=== PATIENT | male | born 1965 | race African-American/Black ===

== ENCOUNTER 2021-01-15 14:18 | Inpatient (IN) | payer OTHER ==
[2021-01-15 16:14] VITALS: BMI 25.7
[2021-01-15] MEDS ORDERED: chlordiazePOXIDE HCL 25 MG CAPSULE PO PRN (18:09)
[2021-01-15] MEDS ORDERED: METHOCARBAMOL 500 MG TABLET PO PRN (18:12)
[2021-01-15] MEDS ORDERED: MAGNESIUM HYDROX 2400MG/30ML ORAL SUSPENSION 30 ML CUP PO PRN (18:12)
[2021-01-15] MEDS ORDERED: BISMUTH SUBSALICYLATE 524 MG/30 ML UD PO PRN (18:12)
[2021-01-15] MEDS ORDERED: IBUPROFEN 400 MG TABLET (FP) PO PRN (18:12)
[2021-01-15] MEDS ORDERED: MENTHOL/PHENOL 1 EACH UD MM PRN (18:12)
[2021-01-15] MEDS ORDERED: MAG HYDROX/AL HYDROX/SIMETH 30 ML UNIT-DOSE CUP PO PRN (18:12)
[2021-01-15] MEDS ORDERED: ACETAMINOPHEN 325 MG TABLET (FP) PO PRN ×2 (18:12)
[2021-01-15] MEDS ORDERED: ONDANSETRON *ODT* 4 MG TABLET SL PRN (18:12)
[2021-01-15] MEDS ORDERED: MAGNESIUM CITRATE 300 ML BOTTLE PO PRN (18:12)
[2021-01-15] MEDS: MELATONIN 5 MG TABLETS PO SCH (21:30)
[2021-01-15] MEDS: hydrOXYzine PAMOATE 25 MG CAPSULE (FP) PO SCH (21:30)
[2021-01-15] MEDS: levETIRAcetam 250 MG TABLET PO SCH (21:31)
[2021-01-15] MEDS: ATORVASTATIN CA 80 MG TABLET (FP) PO SCH (21:31)
[2021-01-15] MEDS: THIAMINE HCL 100 MG TABLET (FP) PO SCH (21:31)
[2021-01-15] MEDS: chlordiazePOXIDE HCL 25 MG CAPSULE PO SCH (22:08)
[2021-01-16] MEDS: hydrOXYzine PAMOATE 25 MG CAPSULE (FP) PO SCH ×6 (05:35→22:20)
[2021-01-16] MEDS: chlordiazePOXIDE HCL 25 MG CAPSULE PO SCH ×5 (05:35→22:19)
[2021-01-16] MEDS ORDERED: MASKS NR ONE (06:13)
[2021-01-16] MEDS: LISINOPRIL 5 MG TABLET PO SCH (10:09)
[2021-01-16] MEDS: levETIRAcetam 250 MG TABLET PO SCH ×2 (10:09→22:46)
[2021-01-16] MEDS: PRENATAL VITAMINS W/ FOLIC ACID TABLET (FP) PO SCH (10:10)
[2021-01-16 10:14] LABS: HEMATOCRIT 48.5 % (35.4-49); HEMOGLOBIN 15.1 GM/dL (11.7-16.9); MCH 26.5 pg (25.7-33.7); MCHC 31.2 g/dl (32.0-35.9); MEAN CELL VOLUME 84.8 fl (80-96); MEAN PLT VOLUME 8.4 fl (7.5-11.1); PLATELET COUNT 140 K/MM3 (134-434); RBC 5.72 M/mm3 (4.00-5.60); RDW 20.4 % (11.9-15.9)
[2021-01-16 11:41] LABS: ALBUMIN 3.9 g/dl (3.4-5.0); BILIRUBIN,TOTAL 0.9 mg/dL (0.2-1); BLOOD UREA NITROGEN 9.6 mg/dL (7-18); CALCIUM 9.6 mg/dL (8.5-10.1); CREATININE 1.1 mg/dL (0.55-1.3); TOT PROT 7.5 g/dl (6.4-8.2)
[2021-01-16] MEDS: MELATONIN 5 MG TABLETS PO SCH (22:20)
[2021-01-16] MEDS: ATORVASTATIN CA 80 MG TABLET (FP) PO SCH (22:20)
[2021-01-16] MEDS: THIAMINE HCL 100 MG TABLET (FP) PO SCH (22:20)
[2021-01-17] MEDS: hydrOXYzine PAMOATE 25 MG CAPSULE (FP) PO SCH ×5 (05:33→22:49)
[2021-01-17] MEDS: chlordiazePOXIDE HCL 25 MG CAPSULE PO SCH ×4 (05:33→22:49)
[2021-01-17] MEDS: PRENATAL VITAMINS W/ FOLIC ACID TABLET (FP) PO SCH (10:03)
[2021-01-17] MEDS: levETIRAcetam 250 MG TABLET PO SCH ×2 (10:03→22:49)
[2021-01-17] MEDS: LISINOPRIL 5 MG TABLET PO SCH (10:04)
[2021-01-17 17:23] LABS: URINE APPEARANCE CLEAR; URINE BILIRUBIN NEGATIVE (NEGATIVE); URINE COLOR YELLOW; URINE GLUCOSE (UA) NEGATIVE (NEGATIVE); URINE KETONE NEGATIVE (NEGATIVE); URINE LEUK ESTERASE NEGATIVE (NEGATIVE); URINE NITRITE NEGATIVE (NEGATIVE); URINE PROTEIN NEGATIVE (NEGATIVE); URINE UROBILINOGEN 0.2 mg/dL (0.2-1.0)
[2021-01-17] MEDS: MELATONIN 5 MG TABLETS PO SCH (22:49)
[2021-01-17] MEDS: ATORVASTATIN CA 80 MG TABLET (FP) PO SCH (22:49)
[2021-01-17] MEDS: THIAMINE HCL 100 MG TABLET (FP) PO SCH (22:50)
[2021-01-18] MEDS ORDERED: chlordiazePOXIDE HCL 10 MG CAPSULE PO PRN
[2021-01-18] MEDS: hydrOXYzine PAMOATE 25 MG CAPSULE (FP) PO SCH ×5 (05:12→22:52)
[2021-01-18] MEDS: chlordiazePOXIDE HCL 10 MG CAPSULE PO SCH ×4 (05:13→22:52)
[2021-01-18 10:07] LABS: SARS-CoV-2 NAA Not Detected (Not Detected)
[2021-01-18] MEDS: PRENATAL VITAMINS W/ FOLIC ACID TABLET (FP) PO SCH (10:11)
[2021-01-18] MEDS: LISINOPRIL 5 MG TABLET PO SCH (10:11)
[2021-01-18] MEDS: levETIRAcetam 250 MG TABLET PO SCH ×2 (10:11→22:52)
[2021-01-18] MEDS: ATORVASTATIN CA 80 MG TABLET (FP) PO SCH (22:52)
[2021-01-18] MEDS: THIAMINE HCL 100 MG TABLET (FP) PO SCH (22:52)
[2021-01-18] MEDS: MELATONIN 5 MG TABLETS PO SCH (22:52)
[2021-01-19] MEDS: hydrOXYzine PAMOATE 25 MG CAPSULE (FP) PO SCH ×6 (05:59→22:56)
[2021-01-19] MEDS: chlordiazePOXIDE HCL 10 MG CAPSULE PO SCH ×2 (06:42→18:11)
[2021-01-19] MEDS: levETIRAcetam 250 MG TABLET PO SCH ×3 (10:05→22:57)
[2021-01-19] MEDS: PRENATAL VITAMINS W/ FOLIC ACID TABLET (FP) PO SCH ×2 (10:06→10:35)
[2021-01-19] MEDS: LISINOPRIL 5 MG TABLET PO SCH ×2 (10:06→10:36)
[2021-01-19] MEDS: BICTEGRAV/EMTRICIT/TENOFOV (BIKTARVY) 50-200-25 MG TABLET PO SCH (14:27)
[2021-01-19] MEDS: THIAMINE HCL 100 MG TABLET (FP) PO SCH (22:56)
[2021-01-19] MEDS: MELATONIN 5 MG TABLETS PO SCH (22:57)
[2021-01-19] MEDS: ATORVASTATIN CA 80 MG TABLET (FP) PO SCH (22:57)
[2021-01-20] MEDS ORDERED: chlordiazePOXIDE HCL 10 MG CAPSULE PO ONE (05:00)
[2021-01-20] MEDS: hydrOXYzine PAMOATE 25 MG CAPSULE (FP) PO SCH ×2 (06:31→10:05)
[2021-01-20 09:47] VITALS: BP 104/73; PULSE 86; TEMP 96.4
[2021-01-20] MEDS: PRENATAL VITAMINS W/ FOLIC ACID TABLET (FP) PO SCH (10:03)
[2021-01-20] MEDS: levETIRAcetam 250 MG TABLET PO SCH (10:03)
[2021-01-20] MEDS: LISINOPRIL 5 MG TABLET PO SCH (10:04)
[2021-01-20] MEDS: BICTEGRAV/EMTRICIT/TENOFOV (BIKTARVY) 50-200-25 MG TABLET PO SCH (10:04)
== END 2021-01-20 11:55 | disposition other institution (70) | DRG 897 ==
LOC: YASAS 14:18 → Y3N 17:47
PROVIDERS: ADMIT Allergy & Immunology; ATTEND Allergy & Immunology
PROC: HZ2ZZZZ Detoxification Services for Substance Abuse Treatment (ICD-10-PCS; principal; 2021-01-15)
DX: F10.230 Alcohol dependence with withdrawal, uncomplicated (principal); F14.20 Cocaine dependence, uncomplicated; I69.854 Hemiplegia and hemiparesis following other cerebrovascular disease affecting left non-dominant side; F17.210 Nicotine dependence, cigarettes, uncomplicated; Z21 Asymptomatic human immunodeficiency virus [HIV] infection status; I10 Essential (primary) hypertension; J45.909 Unspecified asthma, uncomplicated; E78.5 Hyperlipidemia, unspecified; D75.1 Secondary polycythemia; R74.01 Elevation of levels of liver transaminase levels; Z86.69 Personal history of other diseases of the nervous system and sense organs; Z86.79 Personal history of other diseases of the circulatory system; Z91.013 Allergy to seafood; Z91.018 Allergy to other foods
CPT/HCPCS: 36415; 80053; 81003; 85027; 86780; 93005; 93010; C9803; U0003; U0005

== ENCOUNTER 2021-03-22 17:26 | Inpatient (IN) | payer OTHER ==
[2021-03-22 18:42] VITALS: BMI 27.4
[2021-03-23] MEDS ORDERED: MAG HYDROX/AL HYDROX/SIMETH 30 ML UNIT-DOSE CUP PO PRN (03:31)
[2021-03-23] MEDS ORDERED: ACETAMINOPHEN 325 MG TABLET (FP) PO PRN (03:31)
[2021-03-23] MEDS ORDERED: LOPERAMIDE HCL 2 MG CAPSULE PO PRN (03:31)
[2021-03-23] MEDS ORDERED: P-EPHED 60MG/TRIPROLIDI 2.5MG TABLET PO PRN (03:31)
[2021-03-23] MEDS ORDERED: guaiFENesin 200 MG/10 ML 10 ML UNIT-DOSE CUPS PO PRN (03:31)
[2021-03-23] MEDS ORDERED: MAGNESIUM CITRATE 300 ML BOTTLE PO PRN (03:31)
[2021-03-23] MEDS ORDERED: NICOTINE POLACRILEX 2 MG GUM BC PRN (03:31)
[2021-03-23] MEDS ORDERED: MAGNESIUM HYDROX 2400MG/30ML ORAL SUSPENSION 30 ML CUP PO PRN (03:31)
[2021-03-23] MEDS ORDERED: IBUPROFEN 400 MG TABLET (FP) PO PRN (03:31)
[2021-03-23] MEDS: NICOTINE 7 MG/24 HOURS TOPICAL PATCH TD SCH (10:03)
[2021-03-23] MEDS: PRENATAL VITAMINS W/ FOLIC ACID TABLET (FP) PO SCH (10:04)
[2021-03-23 10:08] LABS: HEMATOCRIT 40.9 % (35.4-49); HEMOGLOBIN 13.1 GM/dL (11.7-16.9); MCH 27.2 pg (25.7-33.7); MCHC 31.9 g/dl (32.0-35.9); MEAN CELL VOLUME 85.2 fl (80-96); MEAN PLT VOLUME 8.5 fl (7.5-11.1); PLATELET COUNT 168 10^3/uL (134-434); RDW 18.8 % (11.9-15.9); WHITE BLOOD COUNT 4.1 K/mm3 (4.0-10.0)
[2021-03-23 10:15] LABS: ALBUMIN 3.5 g/dl (3.4-5.0); BLOOD UREA NITROGEN 11.9 mg/dL (7-18); CALCIUM 9.1 mg/dL (8.5-10.1)
[2021-03-23 10:20] LABS: BILIRUBIN,TOTAL 0.6 mg/dL (0.2-1)
[2021-03-23 13:25] LABS: URINE APPEARANCE CLEAR; URINE BILIRUBIN NEGATIVE (NEGATIVE); URINE COLOR YELLOW; URINE GLUCOSE (UA) NEGATIVE (NEGATIVE); URINE KETONE NEGATIVE (NEGATIVE); URINE LEUK ESTERASE NEGATIVE (NEGATIVE); URINE NITRITE NEGATIVE (NEGATIVE); URINE PROTEIN NEGATIVE (NEGATIVE); URINE UROBILINOGEN 0.2 mg/dL (0.2-1.0)
[2021-03-23] MEDS: MELATONIN 5 MG TABLETS PO SCH (22:53)
[2021-03-23] MEDS: BICTEGRAV/EMTRICIT/TENOFOV (BIKTARVY) 50-200-25 MG TABLET PO SCH (22:53)
[2021-03-23] MEDS: THIAMINE HCL 100 MG TABLET (FP) PO SCH (22:53)
[2021-03-24] MEDS: PRENATAL VITAMINS W/ FOLIC ACID TABLET (FP) PO SCH (10:18)
[2021-03-24] MEDS: NICOTINE 7 MG/24 HOURS TOPICAL PATCH TD SCH (10:18)
[2021-03-24] MEDS: BICTEGRAV/EMTRICIT/TENOFOV (BIKTARVY) 50-200-25 MG TABLET PO SCH (10:18)
[2021-03-24] MEDS: THIAMINE HCL 100 MG TABLET (FP) PO SCH (21:32)
[2021-03-24] MEDS: MELATONIN 5 MG TABLETS PO SCH (21:32)
[2021-03-25] MEDS: BICTEGRAV/EMTRICIT/TENOFOV (BIKTARVY) 50-200-25 MG TABLET PO SCH ×2 (11:02→15:39)
[2021-03-25] MEDS: NICOTINE 7 MG/24 HOURS TOPICAL PATCH TD SCH (11:02)
[2021-03-25] MEDS: PRENATAL VITAMINS W/ FOLIC ACID TABLET (FP) PO SCH ×2 (11:02→15:38)
[2021-03-25] MEDS: THIAMINE HCL 100 MG TABLET (FP) PO SCH (21:36)
[2021-03-25] MEDS: MELATONIN 5 MG TABLETS PO SCH (21:36)
[2021-03-26] MEDS ORDERED: PT OWN MED DRAWER 7, Y5N ONE (08:46)
[2021-03-26] MEDS: NICOTINE 7 MG/24 HOURS TOPICAL PATCH TD SCH (09:31)
[2021-03-26] MEDS: PRENATAL VITAMINS W/ FOLIC ACID TABLET (FP) PO SCH (09:31)
[2021-03-26] MEDS: BICTEGRAV/EMTRICIT/TENOFOV (BIKTARVY) 50-200-25 MG TABLET PO SCH (09:31)
[2021-03-26] MEDS: MELATONIN 5 MG TABLETS PO SCH (21:57)
[2021-03-26] MEDS: THIAMINE HCL 100 MG TABLET (FP) PO SCH (21:58)
[2021-03-27] MEDS ORDERED: PT OWN MED DRAWER 7, Y5N ONE (08:12)
[2021-03-27] MEDS: PRENATAL VITAMINS W/ FOLIC ACID TABLET (FP) PO SCH (09:12)
[2021-03-27] MEDS: BICTEGRAV/EMTRICIT/TENOFOV (BIKTARVY) 50-200-25 MG TABLET PO SCH (09:12)
[2021-03-27] MEDS: NICOTINE 7 MG/24 HOURS TOPICAL PATCH TD SCH (09:13)
[2021-03-27] MEDS: MELATONIN 5 MG TABLETS PO SCH (22:17)
[2021-03-27] MEDS: THIAMINE HCL 100 MG TABLET (FP) PO SCH (22:17)
[2021-03-28] MEDS: BICTEGRAV/EMTRICIT/TENOFOV (BIKTARVY) 50-200-25 MG TABLET PO SCH (09:22)
[2021-03-28] MEDS: NICOTINE 7 MG/24 HOURS TOPICAL PATCH TD SCH (09:22)
[2021-03-28] MEDS: PRENATAL VITAMINS W/ FOLIC ACID TABLET (FP) PO SCH (09:22)
[2021-03-28] MEDS ORDERED: MASKS NR ONE (19:59)
[2021-03-28] MEDS: THIAMINE HCL 100 MG TABLET (FP) PO SCH (22:16)
[2021-03-28] MEDS: MELATONIN 5 MG TABLETS PO SCH (22:16)
[2021-03-29] MEDS: BICTEGRAV/EMTRICIT/TENOFOV (BIKTARVY) 50-200-25 MG TABLET PO SCH (09:46)
[2021-03-29] MEDS: NICOTINE 7 MG/24 HOURS TOPICAL PATCH TD SCH (09:46)
[2021-03-29] MEDS: PRENATAL VITAMINS W/ FOLIC ACID TABLET (FP) PO SCH (09:46)
[2021-03-29] MEDS: MELATONIN 5 MG TABLETS PO SCH (22:16)
[2021-03-29] MEDS: THIAMINE HCL 100 MG TABLET (FP) PO SCH (22:16)
[2021-03-30] MEDS: BICTEGRAV/EMTRICIT/TENOFOV (BIKTARVY) 50-200-25 MG TABLET PO SCH (09:43)
[2021-03-30] MEDS: NICOTINE 7 MG/24 HOURS TOPICAL PATCH TD SCH (09:43)
[2021-03-30] MEDS: PRENATAL VITAMINS W/ FOLIC ACID TABLET (FP) PO SCH (09:43)
[2021-03-30] MEDS ORDERED: COVID-19 VAC,AD26(JANSSEN)/PF 0.5 ML IM ONE (12:00)
[2021-03-30] MEDS: MELATONIN 5 MG TABLETS PO SCH (21:59)
[2021-03-30] MEDS: THIAMINE HCL 100 MG TABLET (FP) PO SCH (21:59)
[2021-03-31] MEDS: BICTEGRAV/EMTRICIT/TENOFOV (BIKTARVY) 50-200-25 MG TABLET PO SCH (09:25)
[2021-03-31] MEDS: PRENATAL VITAMINS W/ FOLIC ACID TABLET (FP) PO SCH (09:25)
[2021-03-31] MEDS: NICOTINE 7 MG/24 HOURS TOPICAL PATCH TD SCH (09:25)
[2021-03-31] MEDS: METHYL SALICYLATE/MENTHOL OINT 30 GM TUBE TP SCH ×2 (11:09→21:58)
[2021-03-31] MEDS: BACITRACIN 0.9 GM PACKET TP SCH ×2 (11:47→21:58)
[2021-03-31] MEDS: SULFAMETHOXAZOLE/TRIMETHOPRIM 800MG/160MG D.S. TABLET PO SCH (15:55)
[2021-03-31] MEDS: TAMSULOSIN HCL 0.4 MG CAP PO SCH (15:55)
[2021-03-31] MEDS: MELATONIN 5 MG TABLETS PO SCH (21:16)
[2021-03-31] MEDS: levETIRAcetam 250 MG TABLET PO SCH (21:58)
[2021-03-31] MEDS: THIAMINE HCL 100 MG TABLET (FP) PO SCH (21:58)
[2021-03-31] MEDS ORDERED: ATORVASTATIN CA 80 MG TABLET (FP) PO SCH (22:00)
[2021-04-01 07:08] VITALS: BP 120/91; PULSE 77; TEMP 97.1
[2021-04-01] MEDS: BACITRACIN 0.9 GM PACKET TP SCH (09:07)
[2021-04-01] MEDS: TAMSULOSIN HCL 0.4 MG CAP PO SCH (09:07)
[2021-04-01] MEDS: SULFAMETHOXAZOLE/TRIMETHOPRIM 800MG/160MG D.S. TABLET PO SCH (09:07)
[2021-04-01] MEDS: METHYL SALICYLATE/MENTHOL OINT 30 GM TUBE TP SCH (09:07)
[2021-04-01] MEDS: levETIRAcetam 250 MG TABLET PO SCH (09:08)
[2021-04-01] MEDS: NICOTINE 7 MG/24 HOURS TOPICAL PATCH TD SCH (09:08)
[2021-04-01] MEDS: PRENATAL VITAMINS W/ FOLIC ACID TABLET (FP) PO SCH (09:08)
[2021-04-01] MEDS ORDERED: PT OWN MED DRAWER 7, Y5N ONE (09:09)
[2021-04-01] MEDS: BICTEGRAV/EMTRICIT/TENOFOV (BIKTARVY) 50-200-25 MG TABLET PO SCH (09:10)
[2021-04-01] MEDS ORDERED: ASPIRIN 81 MG CHEWABLE TABLETS PO SCH (10:00)
[2021-04-01] MEDS ORDERED: LISINOPRIL 5 MG TABLET PO SCH (10:00)
== END 2021-04-01 09:40 | disposition home or self-care (01) | DRG 895 ==
LOC: YASAS 17:26 → Y5N 03-23 03:13
PROVIDERS: ADMIT Allergy & Immunology; ATTEND Allergy & Immunology
PROC: HZ42ZZZ Group Counseling for Substance Abuse Treatment, Cognitive-Behavioral (ICD-10-PCS; principal; 2021-03-23)
DX: F14.20 Cocaine dependence, uncomplicated (principal); F17.210 Nicotine dependence, cigarettes, uncomplicated; I50.9 Heart failure, unspecified; I11.0 Hypertensive heart disease with heart failure; Z21 Asymptomatic human immunodeficiency virus [HIV] infection status; N40.0 Benign prostatic hyperplasia without lower urinary tract symptoms; E11.9 Type 2 diabetes mellitus without complications; J45.909 Unspecified asthma, uncomplicated; K40.90 Unilateral inguinal hernia, without obstruction or gangrene, not specified as recurrent; Z79.84 Long term (current) use of oral hypoglycemic drugs; Z86.69 Personal history of other diseases of the nervous system and sense organs; Z91.013 Allergy to seafood; Z91.5 Personal history of self-harm
CPT/HCPCS: 0031A; 36415; 80053; 81003; 85027; 86780; 91303; C9803; U0003; U0005

== ENCOUNTER 2021-03-24 20:51 | Emergency (ER) | payer OTHER ==
[2021-03-24 21:17] VITALS: BMI 27.4
[2021-03-25] MEDS ORDERED: HALOPERIDOL LACTATE 5 MG/ML IM ONE (01:46)
[2021-03-25] MEDS ORDERED: LORazepam 2 MG/ML SDV VIAL ONE (01:47)
[2021-03-25] MEDS ORDERED: MIDAZOLAM HCL 2 MG/2 ML SINGLE DOSE VIAL IVPUSH ONE (01:47)
[2021-03-25] MEDS ORDERED: HALOPERIDOL LACTATE 5 MG/ML ONE (01:47)
[2021-03-25] MEDS ORDERED: LORazepam 2 MG/ML SDV VIAL IM ONE (01:56)
[2021-03-25 11:14] VITALS: TEMP 97.6
[2021-03-25 16:35] VITALS: BP 110/52; PULSE 72
== END 2021-03-25 12:25 | disposition home or self-care (01) ==
LOC: JER 20:51
PROC: 3E023NZ Introduction of Analgesics, Hypnotics, Sedatives into Muscle, Percutaneous Approach (ICD-10-PCS; principal; 2021-03-25)
PROC: 3E033NZ Introduction of Analgesics, Hypnotics, Sedatives into Peripheral Vein, Percutaneous Approach (ICD-10-PCS; 2021-03-25)
DX: K40.90 Unilateral inguinal hernia, without obstruction or gangrene, not specified as recurrent (principal)
CPT/HCPCS: 76870-TC; 99284-25

== ENCOUNTER 2024-11-05 16:49 | Inpatient (IN) | payer OTHER ==
[2024-11-05] MEDS ORDERED: VANCOMYCIN 1,000 MG in DEXTROSE 5%-WATER - 250 ML IVPB ONE (18:03)
[2024-11-05] MEDS ORDERED: PIPERACILLIN/TAZOB 4.5 GM 4.5 GM/100 ML BAG IVPB ONE (19:53)
[2024-11-05] MEDS: SODIUM CHLORIDE 0.9% 500 ML INFUS.BAG IV ONE ×2 (19:55→20:59)
[2024-11-05] MEDS: PIPERACILLIN/TAZOB 4.5 GM 4.5 GM in DEXTROSE 5%-WATER 100 ML IVPB ONE (19:55)
[2024-11-05] MEDS ORDERED: ACETAMINOPHEN INJECTION 100 ML ONE ×2 (20:35→21:02)
[2024-11-05 20:41] LABS: LACTIC ACID 3.4 mmol/L (0.4-2.0)
[2024-11-05 21:04] LABS: VENOUS BASE EXCESS 2.7 mmol/L (-2-2); VENOUS O2 SATURATION 89.8 % (70-80); VENOUS PCO2 45.5 mmHg (38-52); VENOUS PH 7.405 (7.310-7.410)
[2024-11-05] MEDS: ACETAMINOPHEN 1000 MG/100 ML BAG IVPB ONE (21:05)
[2024-11-05 21:11] LABS: HEMATOCRIT 33.2 % (35.4-49); HEMOGLOBIN 10.9 GM/dL (11.7-16.9); MCH 26.4 pg (25.7-33.7); MCHC 32.9 g/dl (32.0-35.9); MEAN CELL VOLUME 80.2 fl (80-96); MEAN PLT VOLUME 8.3 fl (7.5-11.1); PLATELET COUNT 175 10^3/uL (134-434); RBC 4.14 M/mm3 (4.00-5.60); RDW 18.7 % (11.9-15.9); WHITE BLOOD COUNT 7.9 K/mm3 (4.0-10.0)
[2024-11-05] MEDS: CLINDAMYCIN 900 MG PREMIX IVPB 900 MG/50 ML BAG IVPB ONE (21:16)
[2024-11-05 21:34] LABS: ACTIVATED PTT 28.5 SECONDS (25.2-36.5); INR 1.08 (0.83-1.09); PROTHROMBIN TIME (PATIENT) 11.8 SEC (9.7-13.0)
[2024-11-05 21:47] LABS: ANISOCYTOSIS 2+; SMUDGE CELLS FEW
[2024-11-05 21:48] LABS: TARGET CELLS 1+
[2024-11-05] MEDS ORDERED: VANCOMYCIN 1 GM PREMIX (F) 1 GM/200 ML BAG ONE (21:48)
[2024-11-05] MEDS: VANCOMYCIN 1,000 MG in DEXTROSE 5%-WATER - 200 ML IVPB ONE (22:07)
[2024-11-05 22:45] LABS: ALBUMIN 2.6 g/dl (3.4-5.0); BILIRUBIN,TOTAL 0.6 mg/dL (0.2-1); BLOOD UREA NITROGEN 24.4 mg/dL (7-18); CALCIUM 9.1 mg/dL (8.5-10.1); CREATININE 1.1 mg/dL (0.55-1.3); POTASSIUM 3.5 mmol/L (3.5-5.1); TOT PROT 6.3 g/dl (6.4-8.2)
[2024-11-05 23:11] LABS: EPI CELLS 2 /uL (0-25.1); HYALINE CASTS 0 /uL (0-3.1); PH,URINE 6.5 (5.0-8.0); URINE APPEARANCE CLEAR; URINE BACTERIA 15 /uL (0-1359); URINE BILIRUBIN NEGATIVE (NEGATIVE); URINE COLOR YELLOW; URINE GLUCOSE (UA) NEGATIVE (NEGATIVE); URINE KETONE NEGATIVE (NEGATIVE); URINE LEUK ESTERASE NEGATIVE (NEGATIVE); URINE NITRITE NEGATIVE (NEGATIVE); URINE PROTEIN 2+ (NEGATIVE); URINE RBC 18 /uL (0-23.9); URINE WBC 4 /uL (0-25.8)
[2024-11-05] MEDS ORDERED: HALOPERIDOL LACTATE 5 MG/ML ONE (23:30)
[2024-11-05] MEDS ORDERED: LORazepam 2 MG/ML SDV VIAL ONE (23:30)
[2024-11-05] MEDS: HALOPERIDOL LACTATE 5 MG/ML IM ONE (23:52)
[2024-11-06] MEDS: INSULIN ASPART SLIDING SCALE (NOVOLOG) 1 VIAL SQ SCH (06:35)
[2024-11-06] MEDS: SODIUM CHLORIDE 1,000 ML IV SCH ×2 (06:43→18:15)
[2024-11-06 09:07] LABS: MCH 26.3 pg (25.7-33.7); MCHC 32.4 g/dl (32.0-35.9); MEAN CELL VOLUME 81.1 fl (80-96); MEAN PLT VOLUME 7.6 fl (7.5-11.1); PLATELET COUNT 193 10^3/uL (134-434); RBC 4.56 M/mm3 (4.00-5.60); RDW 18.8 % (11.9-15.9); WHITE BLOOD COUNT 8.2 K/mm3 (4.0-10.0)
[2024-11-06 09:26] LABS: POTASSIUM 3.8 mmol/L (3.5-5.1)
[2024-11-06 09:37] LABS: CALCIUM 9.6 mg/dL (8.5-10.1)
[2024-11-06 09:39] LABS: BLOOD UREA NITROGEN 13.7 mg/dL (7-18)
[2024-11-06 09:40] LABS: CREATININE 0.8 mg/dL (0.55-1.3); PHOSPHOROUS 1.7 mg/dL (2.5-4.9)
[2024-11-06 09:42] LABS: MAGNESIUM 2.1 mg/dL (1.8-2.4)
[2024-11-06] MEDS: ENOXAPARIN NA (PORCINE) 40 MG/0.4 ML DISP.SYRIN SQ SCH (09:44)
[2024-11-06] MEDS: PIPERACILLIN/TAZOB 3.375 GM 3.375 GM in DEXTROSE 5%-WATER - 50 ML IVPB SCH (09:44)
[2024-11-06] MEDS: levETIRAcetam 250 MG TABLET PO SCH (09:44)
[2024-11-06] MEDS ORDERED: PIPERACILLIN/TAZOB 3.375 GM 3.375 GM in DEXTROSE 5%-WATER - 50 ML IVPB SCH (10:00)
[2024-11-06] MEDS: BICTEGRAV/EMTRICIT/TENOFOV (BIKTARVY) 50-200-25 MG TABLET PO SCH (10:19)
[2024-11-06] MEDS: VANCOMYCIN 1,000 MG in DEXTROSE 5%-WATER - 250 ML IVPB SCH (10:20)
[2024-11-06] MEDS: VANCOMYCIN 1 GM PREMIX (F) 1,000 MG/200 ML BAG IVPB SCH (10:20)
[2024-11-06] MEDS ORDERED: ALBUTEROL SO4 0.083% IH SOL 2.5 MG/3 ML VIAL.NEB. NEB PRN (11:07)
[2024-11-06 11:37] LABS: IRON SERUM 17 ug/dL (50-175); TOTAL IRON BINDING CAPACITY 240 ug/dL (250-450)
[2024-11-06] MEDS: VANCOMYCIN 1 GM PREMIX (F) 1 GM/200 ML BAG IVPB SCH (11:45)
[2024-11-06] MEDS: methylPREDNISolone NA SUCC 40 MG/1 ML VIAL IVPUSH SCH (11:45)
[2024-11-06] MEDS: LORazepam 1 MG TABLET PO PRN (13:28)
[2024-11-06] MEDS: SODIUM CHLORIDE NASAL SPRAY 44 ML BOTTLE NS SCH (17:37)
[2024-11-06] MEDS: CEFTRIAXONE 2 GM-D5W BAG 2 GM/50 ML BAG IVPB SCH (18:14)
[2024-11-06] MEDS: TAMSULOSIN HCL 0.4 MG CAP PO SCH (21:54)
[2024-11-07] MEDS: oxyCODONE HCL 5 MG TABLET PO PRN (02:15)
[2024-11-07 09:10] LABS: BASO % 0.3 % (0-2.0); HEMATOCRIT 34.1 % (35.4-49); HEMOGLOBIN 10.4 GM/dL (11.7-16.9); LYMPH % 22.7 % (8-40); MCH 24.8 pg (25.7-33.7); MCHC 30.5 g/dl (32.0-35.9); MEAN CELL VOLUME 81.4 fl (80-96); MEAN PLT VOLUME 7.4 fl (7.5-11.1); MONO % 13.9 % (3.8-10.2); NEUT % 62.1 % (42.8-82.8); PLATELET COUNT 204 10^3/uL (134-434); RDW 18.9 % (11.9-15.9); WHITE BLOOD COUNT 6.1 K/mm3 (4.0-10.0)
[2024-11-07 09:43] LABS: POTASSIUM 3.6 mmol/L (3.5-5.1)
[2024-11-07 09:47] LABS: ALBUMIN 2.1 g/dl (3.4-5.0)
[2024-11-07 09:48] LABS: BLOOD UREA NITROGEN 12.6 mg/dL (7-18); MAGNESIUM 1.9 mg/dL (1.8-2.4)
[2024-11-07 09:51] LABS: CREATININE 0.8 mg/dL (0.55-1.3)
[2024-11-07 09:52] LABS: BILIRUBIN,TOTAL 0.4 mg/dL (0.2-1); TOT PROT 5.6 g/dl (6.4-8.2)
[2024-11-08] MEDS: DOCUSATE SODIUM 100 MG CAPSULE (FP) PO PRN (01:35)
[2024-11-08 08:25] LABS: HEMATOCRIT 34.6 % (35.4-49); HEMOGLOBIN 10.9 GM/dL (11.7-16.9); MCH 25.5 pg (25.7-33.7); MCHC 31.5 g/dl (32.0-35.9); MEAN CELL VOLUME 81.2 fl (80-96); MEAN PLT VOLUME 6.9 fl (7.5-11.1); PLATELET COUNT 221 10^3/uL (134-434); RBC 4.27 M/mm3 (4.00-5.60); RDW 18.5 % (11.9-15.9); WHITE BLOOD COUNT 5.7 K/mm3 (4.0-10.0)
[2024-11-08 08:37] LABS: POTASSIUM 3.4 mmol/L (3.5-5.1)
[2024-11-08 08:40] LABS: CALCIUM 8.9 mg/dL (8.5-10.1)
[2024-11-08 08:41] LABS: ALBUMIN 2.2 g/dl (3.4-5.0); BLOOD UREA NITROGEN 13.6 mg/dL (7-18); MAGNESIUM 1.8 mg/dL (1.8-2.4)
[2024-11-08 08:44] LABS: CREATININE 0.8 mg/dL (0.55-1.3)
[2024-11-08 08:46] LABS: BILIRUBIN,TOTAL 0.3 mg/dL (0.2-1); TOT PROT 5.8 g/dl (6.4-8.2)
[2024-11-08] MEDS: POTASSIUM CHLORIDE ORAL LIQUID 20 MEQ/15 ML PO ONE (10:29)
[2024-11-08 11:13] LABS: ANISOCYTOSIS 1+; MACROCYTOSIS 0
[2024-11-08 23:20] VITALS: BMI 23.4
[2024-11-09 09:10] LABS: HEMATOCRIT 38.5 % (35.4-49); HEMOGLOBIN 12.4 GM/dL (11.7-16.9); MCH 25.9 pg (25.7-33.7); MCHC 32.1 g/dl (32.0-35.9); MEAN CELL VOLUME 80.6 fl (80-96); MEAN PLT VOLUME 7.4 fl (7.5-11.1); PLATELET COUNT 300 10^3/uL (134-434); RBC 4.78 M/mm3 (4.00-5.60); RDW 19.2 % (11.9-15.9); WHITE BLOOD COUNT 7.5 K/mm3 (4.0-10.0)
[2024-11-09] MEDS: LACTOBACILLUS ACIDOPHILUS 1 TABLET PO SCH (09:18)
[2024-11-09] MEDS: MULTIVITAMINS (DAILY MVI) TABLET (FP) PO SCH (09:18)
[2024-11-09] MEDS: ASCORBIC ACID 250 MG TABLET (FP) PO SCH (09:18)
[2024-11-09 09:35] LABS: CHLORIDE 102 mmol/L (98-107); SODIUM 130 mmol/L (136-145)
[2024-11-09 09:37] LABS: POTASSIUM 9.7 mmol/L (3.5-5.1)
[2024-11-09 09:41] LABS: GLUCOSE,RANDOM 99 mg/dL (74-106)
[2024-11-09 09:42] LABS: ALBUMIN 2.2 g/dl (3.4-5.0); ANION GAP -4 mmol/L (4-13); BLOOD UREA NITROGEN 13.2 mg/dL (7-18); CO2 32 mmol/L (21-32); MAGNESIUM 2.2 mg/dL (1.8-2.4)
[2024-11-09 09:44] LABS: CREATININE 0.8 mg/dL (0.55-1.3)
[2024-11-09 09:45] LABS: BILIRUBIN,TOTAL 0.6 mg/dL (0.2-1)
[2024-11-09 09:46] LABS: TOT PROT 7.2 g/dl (6.4-8.2)
[2024-11-09 09:47] LABS: ALK PHOS 102 U/L (45-117)
[2024-11-09 09:57] LABS: SGOT/AST 160 U/L (15-37); SGPT/ALT 172 U/L (13-61)
[2024-11-09 10:06] LABS: ANISOCYTOSIS 1+; TARGET CELLS 1+
[2024-11-09 11:17] LABS: POTASSIUM 3.8 mmol/L (3.5-5.1)
[2024-11-09 11:20] LABS: ALBUMIN 2.4 g/dl (3.4-5.0); BLOOD UREA NITROGEN 13.7 mg/dL (7-18)
[2024-11-09 11:23] LABS: CREATININE 0.7 mg/dL (0.55-1.3)
[2024-11-09 11:24] LABS: BILIRUBIN,TOTAL 0.2 mg/dL (0.2-1)
[2024-11-09 11:25] LABS: TOT PROT 6.4 g/dl (6.4-8.2)
[2024-11-10 08:57] LABS: INR 1.15 (0.83-1.09); PROTHROMBIN TIME (PATIENT) 12.6 SEC (9.7-13.0)
[2024-11-10 09:04] LABS: HEMATOCRIT 38.1 % (35.4-49); HEMOGLOBIN 12.1 GM/dL (11.7-16.9); MCH 25.9 pg (25.7-33.7); MCHC 31.7 g/dl (32.0-35.9); MEAN CELL VOLUME 81.7 fl (80-96); PLATELET COUNT 334 10^3/uL (134-434); RBC 4.66 M/mm3 (4.00-5.60); RDW 18.6 % (11.9-15.9); WHITE BLOOD COUNT 7.5 K/mm3 (4.0-10.0)
[2024-11-10 09:22] LABS: POTASSIUM 4.4 mmol/L (3.5-5.1)
[2024-11-10 09:23] LABS: CALCIUM 9.2 mg/dL (8.5-10.1)
[2024-11-10 09:24] LABS: ALBUMIN 2.6 g/dl (3.4-5.0); BLOOD UREA NITROGEN 11.6 mg/dL (7-18); MAGNESIUM 2.2 mg/dL (1.8-2.4)
[2024-11-10 09:27] LABS: CREATININE 0.7 mg/dL (0.55-1.3)
[2024-11-10 09:28] LABS: BILIRUBIN,TOTAL 0.3 mg/dL (0.2-1); TOT PROT 6.5 g/dl (6.4-8.2)
[2024-11-10] MEDS ORDERED: MIDAZOLAM HCL 2 MG/2 ML SINGLE DOSE VIAL ONE ×3 (12:15→12:36)
[2024-11-10] MEDS ORDERED: GLYCOPYRROLATE 0.2 MG/1 ML VIAL ONE (12:17)
[2024-11-10] MEDS ORDERED: ALBUTEROL SO4 HFA INHALER IH ONE (12:17)
[2024-11-10] MEDS ORDERED: PROPOFOL 40 ML ONE (13:13)
[2024-11-10] MEDS: ceFAZolin SODIUM 1 GM VIAL IVPB ONE (13:25)
[2024-11-10] MEDS ORDERED: ONDANSETRON 4 MG/2 ML VIAL ONE (13:52)
[2024-11-10] MEDS ORDERED: ceFAZolin SODIUM 1 GM VIAL ONE (13:52)
[2024-11-10] MEDS ORDERED: DEXAMETHASONE SOD PHOSPHATE 4 MG/1 ML VIAL ONE (13:52)
[2024-11-10] MEDS ORDERED: ONDANSETRON 4 MG/2 ML VIAL IVPUSH PRN (14:06)
[2024-11-10] MEDS ORDERED: LACTATED RINGERS SOLUTION 1,000 ML IV SCH (14:15)
[2024-11-10] MEDS ORDERED: ALBUTEROL SO4 0.083% IH SOL 2.5 MG/3 ML VIAL.NEB. NEB PRN (14:19)
[2024-11-10] MEDS ORDERED: INSULIN ASPART SLIDING SCALE (NOVOLOG) 1 VIAL SQ ONE (16:48)
[2024-11-10] MEDS: INSULIN ASPART SLIDING SCALE (NOVOLOG) 1 VIAL SQ SCH (16:51)
[2024-11-10] MEDS: oxyCODONE HCL 5 MG TABLET PO PRN (17:28)
[2024-11-10] MEDS: LORazepam 1 MG TABLET PO PRN (17:49)
[2024-11-10] MEDS ORDERED: VANCOMYCIN 1 GM PREMIX (F) 1 GM/200 ML BAG IVPB SCH (22:00)
[2024-11-10] MEDS: levETIRAcetam 250 MG TABLET PO SCH (23:12)
[2024-11-10] MEDS: TAMSULOSIN HCL 0.4 MG CAP PO SCH (23:12)
[2024-11-10] MEDS: SODIUM CHLORIDE NASAL SPRAY 44 ML BOTTLE NS SCH (23:12)
[2024-11-11] MEDS: DOCUSATE SODIUM 100 MG CAPSULE (FP) PO PRN (06:23)
[2024-11-11] MEDS: HALOPERIDOL LACTATE 5 MG/ML IM ONE ×3 (09:33→16:40)
[2024-11-11] MEDS: LACTOBACILLUS ACIDOPHILUS 1 TABLET PO SCH (10:21)
[2024-11-11] MEDS: BICTEGRAV/EMTRICIT/TENOFOV (BIKTARVY) 50-200-25 MG TABLET PO SCH (10:21)
[2024-11-11] MEDS: CEFTRIAXONE 2 GM-D5W BAG 2 GM/50 ML BAG IVPB SCH (10:22)
[2024-11-11] MEDS: ENOXAPARIN NA (PORCINE) 40 MG/0.4 ML DISP.SYRIN SQ SCH (10:22)
[2024-11-11] MEDS: methylPREDNISolone NA SUCC 40 MG/1 ML VIAL IVPUSH SCH (10:22)
[2024-11-11] MEDS: ASCORBIC ACID 250 MG TABLET (FP) PO SCH (10:23)
[2024-11-11] MEDS: MULTIVITAMINS (DAILY MVI) TABLET (FP) PO SCH (10:23)
[2024-11-11] MEDS: ARIPiprazole 10 MG TABLET PO SCH (10:23)
[2024-11-11] MEDS: ARIPiprazole 20 MG TABLET PO SCH (10:24)
[2024-11-11] MEDS ORDERED: INSULIN ASPART SLIDING SCALE (NOVOLOG) 1 VIAL SQ ONE ×2 (11:51→17:35)
[2024-11-11 15:25] LABS: HEMATOCRIT 40.8 % (35.4-49); HEMOGLOBIN 13.1 GM/dL (11.7-16.9); MCH 25.6 pg (25.7-33.7); MCHC 32.2 g/dl (32.0-35.9); MEAN CELL VOLUME 79.6 fl (80-96); MEAN PLT VOLUME 6.5 fl (7.5-11.1); PLATELET COUNT 402 10^3/uL (134-434); RBC 5.12 M/mm3 (4.00-5.60); RDW 18.9 % (11.9-15.9); WHITE BLOOD COUNT 14.2 K/mm3 (4.0-10.0)
[2024-11-11 15:32] LABS: INR 1.17 (0.83-1.09); PROTHROMBIN TIME (PATIENT) 12.8 SEC (9.7-13.0)
[2024-11-11 15:52] LABS: BLOOD UREA NITROGEN 28.2 mg/dL (7-18); CALCIUM 9.9 mg/dL (8.5-10.1); MAGNESIUM 2.5 mg/dL (1.8-2.4)
[2024-11-11 15:55] LABS: CREATININE 2.2 mg/dL (0.55-1.3)
[2024-11-11 15:57] LABS: BILIRUBIN,TOTAL 0.3 mg/dL (0.2-1); TOT PROT 7.6 g/dl (6.4-8.2)
[2024-11-11 16:28] LABS: ANISOCYTOSIS 2+; MACROCYTOSIS 0
[2024-11-12] MEDS: AMOX TR/POT CLAV 875MG/125MG TABLETS (FP) PO SCH (11:25)
[2024-11-12 12:11] LABS: BASO % 0.1 % (0-2.0); HEMATOCRIT 40.3 % (35.4-49); HEMOGLOBIN 12.8 GM/dL (11.7-16.9); LYMPH % 7.8 % (8-40); MCH 25.2 pg (25.7-33.7); MCHC 31.7 g/dl (32.0-35.9); MEAN CELL VOLUME 79.4 fl (80-96); MEAN PLT VOLUME 6.5 fl (7.5-11.1); MONO % 4.3 % (3.8-10.2); NEUT % 87.8 % (42.8-82.8); PLATELET COUNT 397 10^3/uL (134-434); RBC 5.07 M/mm3 (4.00-5.60); RDW 19.3 % (11.9-15.9); WHITE BLOOD COUNT 15.4 K/mm3 (4.0-10.0)
[2024-11-12 12:18] LABS: INR 1.18 (0.83-1.09)
[2024-11-12 12:29] LABS: POTASSIUM 4.8 mmol/L (3.5-5.1)
[2024-11-12 12:31] LABS: BLOOD UREA NITROGEN 43.3 mg/dL (7-18); CALCIUM 9.8 mg/dL (8.5-10.1)
[2024-11-12 12:32] LABS: ALBUMIN 3.2 g/dl (3.4-5.0); MAGNESIUM 2.7 mg/dL (1.8-2.4)
[2024-11-12 12:35] LABS: CREATININE 3.6 mg/dL (0.55-1.3)
[2024-11-12 12:36] LABS: BILIRUBIN,TOTAL 0.4 mg/dL (0.2-1); TOT PROT 7.5 g/dl (6.4-8.2)
[2024-11-12] MEDS: FAMOTIDINE 20 MG TABLET PO ONE (13:54)
[2024-11-12] MEDS: FAMOTIDINE 10 MG TABLET PO SCH (14:09)
[2024-11-12 23:32] VITALS: RESP 18
[2024-11-13] MEDS: predniSONE 20 MG TABLET (UD) PO SCH (09:29)
[2024-11-14 11:50] VITALS: BP 118/62; PULSE 81; TEMP 97.7
== END 2024-11-14 11:50 | disposition left against medical advice (07) | DRG 139 ==
LOC: JER 16:49 → JERBED 11-06 02:54 → J8W 11-06 06:25
PROVIDERS: ADMIT Internal Medicine; ATTEND Nurse Practitioner Acute Care
PROC: 0T778DZ Dilation of Left Ureter with Intraluminal Device, Via Natural or Artificial Opening Endoscopic (ICD-10-PCS; principal; 2024-11-10 13:00)
DX: J18.9 Pneumonia, unspecified organism (principal); I11.0 Hypertensive heart disease with heart failure; L89.312 Pressure ulcer of right buttock, stage 2; L89.322 Pressure ulcer of left buttock, stage 2; F14.20 Cocaine dependence, uncomplicated; I69.354 Hemiplegia and hemiparesis following cerebral infarction affecting left non-dominant side; I50.9 Heart failure, unspecified; R45.851 Suicidal ideations; N20.1 Calculus of ureter; R78.81 Bacteremia; F20.9 Schizophrenia, unspecified; N13.8 Other obstructive and reflux uropathy; B95.5 Unspecified streptococcus as the cause of diseases classified elsewhere; E11.9 Type 2 diabetes mellitus without complications; F17.200 Nicotine dependence, unspecified, uncomplicated; G40.909 Epilepsy, unspecified, not intractable, without status epilepticus; J45.909 Unspecified asthma, uncomplicated; N32.89 Other specified disorders of bladder; N40.0 Benign prostatic hyperplasia without lower urinary tract symptoms; R09.02 Hypoxemia; Z21 Asymptomatic human immunodeficiency virus [HIV] infection status; Z59.00 Homelessness unspecified; E78.5 Hyperlipidemia, unspecified
CPT/HCPCS: 0241U-QW; 36415; 70450-TC; 71045-TC-FY; 74177-TC; 76000-TC-FY; 80048; 80053; 81003; 82803; 82962; 83036; 83540; 83550; 83605; 83735; 84100; 84484; 85025; 85027; 85045; 85610; 85730; 86359; 86360; 86850; 86900; 86901; 87040; 87086; 87186; 93005; 93010; 93306-TC; 94010; 94760; 97116-GP; 97161-GP; 99285-25; C1758; C2617; G0480; J0131